=== PATIENT | female | born 1990 | race Caucasian/White ===

== ENCOUNTER → 2016-08-06 | Outpatient (REF) ==
--- NOTE | 2016-08-06 15:13 | Diagnostic Imaging Report ---
Three views of the right shoulder. INDICATION: Fall. FINDINGS: There is no fracture, dislocation, or radiopaque foreign body. Acromioclavicular and glenohumeral joints appear unremarkable. IMPRESSION: Unremarkable exam. Dictated by: Dictated on workstation # [id number]
== END | disposition home or self-care (01) ==
LOC: OCC 14:25
PROVIDERS: ATTEND Nurse Practitioner Family
CPT/HCPCS: 73030